=== PATIENT | female | born 1950 | race Caucasian/White ===

== ENCOUNTER 2022-01-23 09:15 | Outpatient (CLI) | payer MEDICARE, BC, SELFPAY | END 2022-01-23 09:16 | disposition home or self-care (01) | LOC: LAB 09:18 | PROVIDERS: Visit Provider Orthopaedic Surgery | DX: Z01.818 Encounter for other preprocedural examination (principal) | CPT/HCPCS: 36415; 86850; 86900; 86901 ==

== ENCOUNTER 2022-01-25 09:15 | Day surgery (SDC) | payer MEDICARE, BC, SELFPAY ==
[2022-01-25] VITALS (23 sets, daily range): BP systolic 93–155; BP diastolic 42–94; PULSE 56–79; RESP 12–20; TEMP 35.3–36.6; O2SAT 91–100; BMI 41.0
[2022-01-25] MEDS: ACETAMINOPHEN 500 MG TABLET 1000 MG PO ×3 (09:23→23:35)
[2022-01-25] MEDS: LACTATED RINGERS 1000 ML 1,000 ML 100 ML IV (09:30)
--- NOTE | 2022-01-25 10:15 | CRLHL7_ITS ---
For Patients: As a result of the Cures Act, medical imaging exams and procedure reports are released immediately into your electronic medical record. You may view this report before your referring provider. If you have questions, please contact your health care provider. Indication: Hip replacement surgery Technique: AP hip fluoroscopic images. Fluoroscopy time is 79.4 seconds. Findings/Impression: Hardware from a left total hip arthroplasty is in satisfactory position. Dictated by Cosmo Sargent MD @ 01/25/2022 2:15:34 PM (Electronically Signed)
[2022-01-25] MEDS: SODIUM CHLORIDE 0.9 % (FLUSH) 10 ML SYRINGE IVF (10:25)
--- NOTE | 2022-01-25 10:35 | SUR.PREOP ---
TIME?OUT:?1035, left hip PT/RN/MDA?VERIFICATION?OF?SURGICAL?SITE,?PROCEDURE,?AND?CONSENT OBTAINED?PRIOR?TO?INVASIVE?PROCEDURE.
[2022-01-25] MEDS: fentaNYL 100 MCG/2 ML inj IVP (10:40)
[2022-01-25] MEDS: MIDAZOLAM HCL 1 MG/ML inj IVP (10:40)
--- NOTE | 2022-01-25 10:45 | P.NB_ITS ---
Nerve Block Nerve Block Time Seen by Provider: 10:45 Date Seen: 01/25/22 Type of block requested by surgeon for post-operative analgesia: MICHAEL/LFCN Side: left Time out performed: Yes Verification of patient name: Yes Verification of date of : Yes Site marking: site marked Name of person performing procedure: Hemant Continuous monitoring Was continuous monitoring of O2 sat, B/P, strap folding machine operator, recorded every 15 minutes?: Yes Procedure Checklist: sterile prep, needles and gloves Ultrasound guided. Images saved: Yes Medications given in 5ml increments after negative aspiration: Ropivicaine %: 0.5 mL: 20 Needle gauge: 20 Decadron (mg): 10 Precedex (mcg): 25 Patient tolerated procedure well: Yes Additional comments: Needle noted adjacent to nerve Block Charges Block Charge (with Pro Fee): Other Periph Nerve Block Use of Ultrasound Machine for Block: Yes- US Guidance/pain block
[2022-01-25] MEDS: CEFAZOLIN 1 GM inj 3 GM IVP (11:25)
[2022-01-25] MEDS: TRANEXAMIC ACID 100 MG/ML INJ 1000 MG IV (11:30)
--- NOTE | 2022-01-25 13:13 | PM.ORPRC ---
Procedure Note Date of procedure: 01/25/22 Procedure: SURGEON: Dawood Perry MD FRANCHISE SPECIALIST: Susy Farley PA-C, SUHA Lincoln PREOPERATIVE DIAGNOSIS: Left hip osteoarthritis POSTOPERATIVE DIAGNOSIS: Left hip osteoarthritis NAME OF OPERATION: Left total hip arthroplasty IMPLANTS: 1. [employer] # 56 sector ingrowth cup 2. 36 x 56 +4 neutral polyethylene 3. Actis # 9 standard collared ingrowth stem 4. 36 + 1.5 ceramic femoral head ANESTHESIA: General ESTIMATED BLOOD LOSS: 300 cc COMPLICATIONS: None SPECIMENS: None DRAINS: None PREOPERATIVE ANTIBIOTICS: Ancef 3 grams INDICATIONS: The patient is a 71-year-old with a longstanding history of severe, unrelenting left hip pain secondary to end-stage left hip osteoarthritis. Despite appropriate nonoperative management, including activity modification, use of an assist device, anti-inflammatories, yxoq-nhb-vnytuel pain medication, physical therapy and injections, they continue to have pain and disability. Operative intervention was offered. The risks, benefits and expected outcomes were discussed in detail. These included but were not limited to: Infection, bleeding, injury to blood vessel or nerve, venous thromboembolism. All questions were answered to their satisfaction. Use of an contract administrative assistant was necessary throughout the case for patient positioning and safety, soft tissue retraction and closure. PROCEDURE: The patient was placed supine on the [place] table. General anesthesia was administered. The contract administrative assistant made sure the patient was properly positioned. The left hip was prepped and draped in the usual sterile fashion. The image intensifier was brought in for a perfect AP pelvis and a perfect double tear drop AP view of each hip which were used for intraoperative templating with our fluoroscopic guide. An oblique incision was made 3 cm distal and 3 cm lateral to the anterior superior iliac spine. The contract administrative assistant retracted the soft tissues to protect them. Subcutaneous dissection was taken with electrocautery to the superficial fascia. The fascia was divided in line with the incision. Blunt dissection was carried medially to the tensor fascia donte and sartorius interval. Deep dissection was carried with electrocautery. The circumflex vessels were cauterized and divided. The capsule was exposed and then divided in a T-fashion, tagged with #1 Ethibond sutures. Retractors were placed in the joint, held by the contract administrative assistant. The corkscrew was placed in the femoral head. The neck cut was made in the subcapital region. We made a second neck cut more distal. The napkin ring of bone was removed. The femoral head was removed intact. Acetabular retractors were placed, held by the contract administrative assistant. The labrum was sharply debrided. The capsule was released. The 43 mm reamer was used to the true medial wall. We then enlarged in 2 mm increments using the image intensifier for our reamer placement. We impacted the cup which had excellent purchase. We placed the hole eliminator and the polyethylene. Attention was then turned to the proximal femur. The limb was placed in 140 degrees of external rotation, maximum extension and adduction. A significant amount of time was spent releasing the capsule to allow us to deliver the femur into the wound and complete the femoral side safely. Retractors were held by the contract administrative assistant throughout the femoral preparation. The box press operator and canal finder were used. Broaches were used to a stable size. The calcar reamer was used. Trial components were placed. The hip was reduced and was found to be stable with appropriate soft tissue tension. Length and offset had been nicely restored using the image intensifier and our fluoroscopic guide. Trial components were removed. The stem was impacted. We placed the femoral head. Again, the hip was reduced and was found to be stable with appropriate soft tissue tension. Length and offset had been nicely restored. The contract administrative assistant did a three minute dilute Betadine solution soak. The contract administrative assistant irrigated the wound with 3 liters of normal saline via pulse lavage. The contract administrative assistant repaired the anterior capsule with a #1 Vicryl and our previously placed Ethibond sutures. The contract administrative assistant closed the fascia over the tensor fascia donte with a #1 PDO Stratafix, subcutaneous tissues with 2-0 Vicryl, skin with a running 3-0 Stratafix and glue. A dry dressing was applied by the contract administrative assistant. Sponge and needle counts were correct x 2. The patient tolerated the procedure well; there were no apparent complications. They were awakened and extubated in the operating room, sent to the Post-Anesthesia Care Unit in satisfactory condition. PLAN: 1. The patient will be mobilized with physical therapy, weight-bearing as tolerates 2. Xarelto x 5 days then aspirin x 30 days will be used for DVT prophylaxis 3. The patient will be discharged once medically appropriate
--- NOTE | 2022-01-25 13:42 | CRLHL7_ITS ---
For Patients: As a result of the Cures Act, medical imaging exams and procedure reports are released immediately into your electronic medical record. You may view this report before your referring provider. If you have questions, please contact your health care provider. Indication: POST OP LEFT CARMELO Technique: AP centered pelvic film and lateral view left hip Findings/Impression: Hardware from a left total hip arthroplasty is in satisfactory position. Bone alignment is normal. No sign of acute fracture. Postop changes are within normal limits. Dictated by Cosmo Sargent MD @ 01/25/2022 2:16:23 PM (Electronically Signed)
--- NOTE | 2022-01-25 13:47 | W.ANESCHARGE ---
Anesthesia Charges Start Date/Time Anesthesia Start Date: 01/25/22 Anesthesia Start Time: 11:15 Stop Date/Time Anesthesia Stop Date: 01/25/22 Anesthesia Stop Time: 13:47 Summary Emergency: No Extremes of Age: Over 70-CPT 48872
--- NOTE | 2022-01-25 13:50 | W.ANESCHARGE ---
Anesthesia Charges Start Date/Time Anesthesia Start Date: 01/25/22 Anesthesia Start Time: 11:15 Stop Date/Time Anesthesia Stop Date: 01/25/22 Anesthesia Stop Time: 13:47 Summary Emergency: No Extremes of Age: Over 70-CPT 49770
--- NOTE | 2022-01-25 14:22 | SUR.PHASEI ---
PT. VITAL SIGNS STABLE. TRANSFER PT TO M/S VIA BED.
[2022-01-25] MEDS: LACTATED RINGERS 1000 ML 1,000 ML 75 ML IV (14:39)
--- NOTE | 2022-01-25 15:02 | P.IMCN_ITS ---
Date of Consult Consult date: 01/25/22 Primary Care Provider: An Prado CNP at [facility] in [place], [place] Consult Narrative Reason for consult: Medical management of comorbidities Narrative: Rut Medina is a 71 year old female who presented to the hospital today for elective left CARMELO with Dr. Perry of Orthopedic surgery. There were no operative or anesthetic complications. Patient is feeling well postoperatively and denies concerns for the hospitalist team. Historically, patient has had bilateral TKAs without complication. She also had a gastric bypass remotely. Comorbidities include anxiety, claustrophobia, Raynaud's phenomenon, essential HTN, mild persistent asthma (never requiring intubation, does not require regular pulmonology follow-up), and allergic rhinitis. No history of blood clots. Preoperative H&P reviewed. She was found to have a mild arrhythmia on preoperative EKG, echocardiogram performed and exhibited no LVH, EF of 63%, and grade 1 diastolic dysfunction. She has had no concerns of chest pain, dyspnea, orthopnea, or PND. No family history of anesthetic complications. 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), retired teacher. Never smoker, rare alcohol use. Review of Systems Status of ROS: Reports: 10 or more systems reviewed and unremarkable except as noted in History and below [facility] Medical History (Updated 01/25/22 @ 15:09 by Jana Huntley MD) Anxiety Asthma Hypertension Pernicious anemia Raynauds syndrome Surgical History (Updated 01/25/22 @ 15:04 by Susy Stevenson PA-C) H/O gastric bypass History of appendectomy History of bunionectomy History of carpal tunnel release of both wrists History of cholecystectomy History of total left knee replacement (08/30/13) History of total right knee replacement (01/17/14) S/P panniculectomy Family History (Updated 01/18/22 @ 09:32 by Josette King RN) Brother Diabetes Atrial fibrillation High blood pressure Myocardial infarction Mother Atrial fibrillation High blood pressure Stroke Father Myocardial infarction Social History Smoking Status: Never smoker How often do you have a drink containing alcohol: never AUDIT-C Alcohol total score: 0 Non-prescribed substance use: denies use and over the counter (eg: immodium) Non-prescribed substance use details: OTC: tumeric, fish oil, calcium with D3, methyl B12, vitamin, CQ10, Zyrtec, Flonase Caffeine: Yes (coffee, 2 cups/day) Meds Home Medications and Allergies Home Medications Medication Instructions Recorded Confirmed Type albuterol sulfate 2.5 mg/3 mL 2.5 mg inhalation Q4H PRN 01/21/22 01/25/22 History (0.083 %) solution for nebulization albuterol sulfate 90 mcg/actuation 2 puff inhalation Q4H PRN 01/21/22 01/21/22 History aerosol inhaler amlodipine 5 mg tablet 5 mg PO DAILY 01/21/22 01/25/22 History amoxicillin 500 mg capsule 2,000 mg PO ONCE PRN 01/21/22 01/21/22 History buspirone 7.5 mg tablet 7.5 mg PO DAILY 01/21/22 01/25/22 History calcium carbonate 600 mg-vitamin 2 cap PO DAILY 01/21/22 01/25/22 History D3 12.5 mcg (500 unit) capsule (Calcium 600 with Vitamin D3) cetirizine 10 mg tablet (24Hour 10 mg PO DAILY 01/21/22 01/25/22 History Allergy) coenzyme Q10 100 mg capsule (Co 100 mg PO DAILY 01/21/22 01/25/22 History Q-10) cyanocobalamin-methylcobalamin 600 1 tab sublingual DAILY 01/21/22 01/21/22 History mcg-600 mcg sublingual tablet fluticasone furoate 200 1 inh inhalation DAILY 01/21/22 01/25/22 History mcg/actuation blister powder for inhalation (Arnuity Ellipta) fluticasone propionate 50 2 spray intranasal DAILY 01/21/22 01/25/22 History mcg/actuation nasal spray,suspension (Allergy Relief (fluticasone)) lorazepam 0.5 mg tablet 0.5 mg PO DAILY PRN 01/21/22 01/25/22 History multivitamin 1 tab PO DAILY 01/21/22 01/25/22 History nitroglycerin 2 % transdermal 0.5 inch topical PRN PRN 01/21/22 01/25/22 History ointment omega 2-xse-evq-fish oil 1,000 mg 1 cap PO DAILY 01/21/22 01/25/22 History (120 mg-180 mg) capsule (Fish Oil) turmeric root extract 500 mg 1,000 mg PO DAILY 01/21/22 01/25/22 History capsule Allergies Allergy/AdvReac Type Severity Reaction Status Date / Time NSAIDS (Non-Steroidal Allergy Intermediate gastric Verified 01/25/22 09:34 Anti-Inflamma bypass tramadol Allergy Unknown Verified 01/25/22 09:34 oxycodone AdvReac Mild Verified 01/25/22 09:34 Exam Narrative: Exam Narrative: GEN: Alert and oriented, laying comfortably in bed answering questions appropriately HEENT: Normal external ears, EOMIs bilaterally, no scleral icterus CV: RRR, No concerning murmurs, rubs, or gallops R: LCTA bilaterally without concerning wheezing, rales, or rhonchi Ext: wwp, no concerning edema Skin: No concerning skin lesions or rashes on exposed skin Neuro: Nonfocal Psych: Appropriate Const: Vital Signs, click to edit/add: Vital Signs - 24 hr 01/25/22 10:11 01/25/22 10:35 01/25/22 10:45 Temperature 97.8 F Pulse Rate 70 79 64 Respiratory Rate 18 18 18 Blood Pressure 135/64 155/94 H 150/89 H Pulse Oximetry 99 100 98 Oxygen Delivery Me thod Room Air Nasal Cannula Nasal Cannula Oxygen Flow Rate 3 3 01/25/22 13:44 01/25/22 13:50 01/25/22 13:55 Temperature 97.7 F Pulse Rate 70 60 56 L Respiratory Rate 14 12 14 Blood Pressure 96/52 L 96/43 L 93/42 L Pulse Oximetry 94 99 100 Oxygen Delivery Me thod Room Air OxyMask OxyMask Oxygen Flow Rate 10 10 01/25/22 14:00 01/25/22 14:05 01/25/22 14:10 Temperature 97.5 F L Pulse Rate 61 61 61 Respiratory Rate 14 16 16 Blood Pressure 118/67 116/81 126/68 Pulse Oximetry 100 97 98 Oxygen Delivery Me thod OxyMask OxyMask Room Air Oxygen Flow Rate 10 6 01/25/22 14:15 01/25/22 14:20 01/25/22 14:24 Temperature 97.6 F 97.6 F Pulse Rate 69 70 66 Respiratory Rate 16 16 14 Blood Pressure 135/67 129/65 143/86 H Pulse Oximetry 95 94 95 Oxygen Delivery Me thod Room Air Room Air Room Air Oxygen Flow Rate Assessment and Plan Assessment and plan (1) Status post left hip replacement: Status: Acute (2) Asthma: Problem comment: mild Status: Acute (3) Anxiety: Status: Acute (4) Hypertension: Status: Acute Plan 71-year-old female, status post left CARMELO. Pain management per orthopedic surgery team. Recommend postoperative DVT prophylaxis with Xarelto, not ASA, given patient's history of gastric bypass. Continue home medications for above-mentioned comorbidities. Anticipate routine postoperative cares and discharge home tomorrow.
--- NOTE | 2022-01-25 15:40 | PC.NURSE ---
PATIENT ARRIVED TO FLOOR AROUND 1435, FAMILY PRESENT AT BEDSIDE, PATIENT ALERT AND ORIENTED BUT VERY SLEEPY, RESPONDS TO VOICE, DRESSING TO LEFT HIP CDI, ACTIVE ICE TO SITE, DECLINING PAIN, ABLE TO MOVE FEET, DECLINING NAUSEA, DECLINING SOB/CP, TOLERATING ICE CHIPS.
[2022-01-25] MEDS: CEFAZOLIN 3 GM in 0.9 % SODIUM CHLORIDE 100 ml 100 ML IVPB (17:26)
--- NOTE | 2022-01-25 19:04 | PC.NURSE ---
[id number]- Patient is sleepy this afternoon. Daughter at bedside and supportive. Jarek rm removed due to patient feeling hot. She tolerates regular diet without issue. She states she is having a little hip pain starting, but headache is more bothersome. Scheduled tylenol given and understands she can get other pain medications if needed, which she is agreeable to. She does not yet feel need to void.
[2022-01-25] MEDS: SENNOSIDES 1 TAB TABLET 2 TAB PO (20:08)
[2022-01-25] MEDS: LORazepam 0.5 MG TABLET PO (20:27)
[2022-01-25] MEDS: HYDROCODONE-ACETAMIN 5-325 MG 1 TAB PO (21:21)
[2022-01-26] MEDS: CEFAZOLIN 3 GM in 0.9 % SODIUM CHLORIDE 100 ml 100 ML IVPB ×2 (01:30→09:18)
[2022-01-26 02:21] VITALS: BP 124/62; PULSE 73; RESP 20; TEMP 36.2; O2SAT 96
--- NOTE | 2022-01-26 02:35 | PC.NURSE ---
Addendum entered by Lili Sheriff RN 01/26/22 05:29: Pt. rated pain 5/10 at 0400, PRN administered and tolerated well. Ice pack to Left hip every few hours. Dressing is clean dry and intact. Pt. sleeping comfortably in recliner and denies any N/V. Original Note: Pt. alert and oriented x3. Very pleasant and cooperative. Pt. tolerating regular diet w/out issue.?Pt. denies pain, scheduled Tylenol given and understands she can get other pain medications if needed, which she is agreeable to but has not requested any.? Pt. up to bathroom and voided. Pt. up to chair and ambulated in hallway w/RN, tolerated activity well. IV in left arm is patent, intact and saline locked.
[2022-01-26] MEDS: HYDROCODONE-ACETAMIN 5-325 MG 1 TAB PO ×2 (03:56→08:33)
[2022-01-26 07:00] VITALS: BP 127/69; PULSE 83; RESP 18; RESP 20; TEMP 36.1; O2SAT 99
[2022-01-26 07:13] LABS: Potassium* 4.9 mmol/L (3.6-5.1); Sodium* 135 mmol/L (135-149)
[2022-01-26 07:14] LABS: Basophils Absolute Auto 0.02 K/uL (0.00-0.30); Basophils Percent Auto 0.2 % (0.0-3.0); Eosinophils Absolute Auto 0.01 K/uL (0.00-0.50); Eosinophils Percent Auto 0.1 % (0.0-7.0); Hematocrit 36.7 % (33.0-51.0); Hemoglobin* 11.7 gm/dL (12.0-16.0); Immature Granulocytes Abs Auto 0.01 K/uL (0.00-0.30); Lymphocytes Percent Auto 12.9 % (20-44); Mean Corpuscular HGB Conc 32 gm/dL (32-36); Mean Corpuscular Hemoglobin 29 pg (26-34); Mean Corpuscular Volume 91 fL (80-100); Monocytes Percent Auto 8.2 % (0.0-11.0); Neutrophils Percent Auto 78.5 % (42.0-72.0); Platelet Count* 156 K/uL (140-440); RDW Coefficient of Variation % 13.8 % (11.5-15.5); Red Blood Count 4.03 m/uL (4.00-5.20); White Blood Count* 10.79 K/uL (4.50-11.00)
[2022-01-26 07:16] LABS: Creatinine* 0.7 mg/dL (0.5-1.5); Est. Creatinine Clearance* 48.72; Estimated Glomerular Filt Rate 91 ml/min
[2022-01-26 07:17] LABS: Blood Urea Nitrogen* 26 mg/dL (7-30)
[2022-01-26 07:19] LABS: Slide Review Reflex No
--- NOTE | 2022-01-26 08:30 | PM.ORPN ---
Subjective Subjective Time Seen by Provider: 07:30 Date Seen: 01/26/22 Principal diagnosis: Status post left hip replacement Interval history: Rut is comfortable this morning. She plans to discharge today. Ortho Exam Narrative Exam Narrative: Alert and oriented x3. Patient is in no acute distress. Converses without labored breathing. Hearing is grossly intact. Ambulates with a walker. Examination of the left hip shows the dressing is intact. There is very mild soft tissue edema about the left hip and thigh. CMS is intact left lower extremity. Bilateral calves are soft and nontender. She is able to get out of her recliner and walk to the bathroom this morning with no assistance and a nurse at her side. Const Vital Signs, click to edit/add: Vital Signs - 24 hr 01/25/22 10:11 01/25/22 10:35 01/25/22 10:45 Temperature 97.8 F Pulse Rate 70 79 64 Pulse Rate [Left Pulse Oximeter] Respiratory Rate 18 18 18 Blood Pressure 135/64 155/94 H 150/89 H Blood Pressure [Right Arm] Pulse Oximetry 99 100 98 Oxygen Delivery Method Room Air Nasal Cannula Nasal Cannula Oxygen Flow Rate 3 3 01/25/22 13:44 01/25/22 13:50 01/25/22 13:55 Temperature 97.7 F Pulse Rate 70 60 56 L Pulse Rate [Left Pulse Oximeter] Respiratory Rate 14 12 14 Blood Pressure 96/52 L 96/43 L 93/42 L Blood Pressure [Right Arm] Pulse Oximetry 94 99 100 Oxygen Delivery Method Room Air OxyMask OxyMask Oxygen Flow Rate 10 10 01/25/22 14:00 01/25/22 14:05 01/25/22 14:10 Temperature 97.5 F L Pulse Rate 61 61 61 Pulse Rate [Left Pulse Oximeter] Respiratory Rate 14 16 16 Blood Pressure 118/67 116/81 126/68 Blood Pressure [Right Arm] Pulse Oximetry 100 97 98 Oxygen Delivery Method OxyMask OxyMask Room Air Oxygen Flow Rate 10 6 01/25/22 14:15 01/25/22 14:20 01/25/22 14:24 Temperature 97.6 F 97.6 F Pulse Rate 69 70 66 Pulse Rate [Left Pulse Oximeter] Respiratory Rate 16 16 14 Blood Pressure 135/67 129/65 143/86 H Blood Pressure [Right Arm] Pulse Oximetry 95 94 95 Oxygen Delivery Method Room Air Room Air Room Air Oxygen Flow Rate 01/25/22 14:35 01/25/22 14:45 01/25/22 15:00 Temperature 95.5 F L 95.5 F L Pulse Rate 71 Pulse Rate [Left Pulse Oximeter] 65 Respiratory Rate 16 16 16 Blood Pressure Blood Pressure [Right Arm] 145/69 H 138/68 137/72 Pulse Oximetry 91 94 Oxygen Delivery Method Room Air Room Air Room Air Oxygen Flow Rate 01/25/22 15:15 01/25/22 15:30 01/25/22 16:00 Temperature 95.5 F L Pulse Rate Pulse Rate [Left Pulse Oximeter] 76 70 68 Respiratory Rate 16 16 16 Blood Pressure Blood Pressure [Right Arm] 133/72 124/74 126/69 Pulse Oximetry 100 95 95 Oxygen Delivery Method Room Air Room Air Room Air Oxygen Flow Rate 01/25/22 16:17 01/25/22 16:30 01/25/22 18:00 Temperature 96.5 F L Pulse Rate Pulse Rate [Left Pulse Oximeter] 74 69 Respiratory Rate 16 16 Blood Pressure Blood Pressure [Right Arm] 131/68 124/70 Pulse Oximetry 99 91 Oxygen Delivery Method Nasal Cannula Room Air Oxygen Flow Rate 2 01/25/22 17:00 01/25/22 23:00 01/25/22 23:00 Temperature 96.8 F L Pulse Rate Pulse Rate [Left Pulse Oximeter] 76 77 77 Respiratory Rate 16 20 20 Blood Pressure Blood Pressure [Right Arm] 127/71 122/64 Pulse Oximetry 91 97 Oxygen Delivery Method Room Air Room Air Oxygen Flow Rate 01/26/22 02:21 Temperature 97.1 F L Pulse Rate Pulse Rate [Left Pulse Oximeter] 73 Respiratory Rate 20 Blood Pressure Blood Pressure [Right Arm] 124/62 Pulse Oximetry 96 Oxygen Delivery Method Room Air Oxygen Flow Rate Assessment and Plan Assessment and plan (1) Status post left hip replacement: Problem details: Date of surgery 01/25/2022 Plan for discharge is today to home. DVT prophylaxis includes Xarelto 10 mg daily for total of 30 days, Tre stockings x1 month may remove for 1 hr per day, frequent ambulation Remove dressing 2 weeks. Observe wound and phone Orthopedics with any questions or concerns Use Ice on operative hip unrestricted. Return to clinic in 1 week with PA for a wound check Return to clinic in [address] Perry Minimize narcotic use. Wean off and discontinue soon as possible. Activities as tolerated. No strenuous activity. Attend outpt PT Status: Acute (2) Asthma: Problem details: mild Status: Acute (3) Anxiety: Status: Acute (4) Hypertension: Status: Acute
[2022-01-26] MEDS: SENNOSIDES 1 TAB TABLET 2 TAB PO (08:33)
[2022-01-26] MEDS: BUSPIRONE 10 MG TABLET 7.5 MG PO (08:33)
[2022-01-26] MEDS: RIVAROXABAN 10 MG TABLET PO (08:33)
[2022-01-26] MEDS: CETIRIZINE HCL 10 MG TABLET PO (08:33)
[2022-01-26] MEDS: FLUTICASONE PROPIONATE NASAL 2 SPRAY NOSTRIL-B (08:34)
--- NOTE | 2022-01-26 10:20 | P.DS_ITS ---
DS: Providers Provider Time Seen by Provider: 09:00 Date Seen: 01/26/22 Primary care physician: Not a Local Provider Admitting Clinician: Dawood Perry MD Consults: 01/25/22 14:24 Consult to Occupational Therapy [CONS] Routine Comment: Reason(s) for OT Consult:: ADLs Prior to Discharge Any Restrictions?:: No Restrictions Comment: Consult to Occupational Therapy [CONS] Routine Comment: Reason(s) for OT Consult:: Evaluate and Treat Any Restrictions?:: No Restrictions Consult to Physical Therapy [CONS] Routine Comment: Ambulate in the [place] today Reason(s) for PT Consult:: Evaluate and Treat Any Restrictions?:: No Restrictions Comment: Nursing Activity Consult to Physical Therapy [CONS] Routine Comment: Ambulate in the [place] today Reason(s) for PT Consult:: THR TX Protocol POD#0 Any Restrictions?:: No Restrictions Comment: Nursing Activity: See nursing activity order Consult to Physician [CONS] Routine Comment: Consulting Provider: Hospitalists Has provider been notified: No Consult to Stemming Machine Operator [CONS] Routine Comment: Reason for Consult:: Discharge Planning Needs Consult to Stemming Machine Operator [CONS] Routine Comment: Reason for Consult:: Discharge Planning Needs Attending Physician on discharge: Dawood Perry MD Date of Discharge: 01/26/22 DS: Diagnosis Discharge Diagnosis (1) Status post left hip replacement: Status: Acute Problem details: Date of surgery 01/25/2022 Plan for discharge is today to home. DVT prophylaxis includes Xarelto 10 mg daily for total of 30 days, Tre stockings x1 month may remove for 1 hr per day, frequent ambulation Remove dressing 2 weeks. Observe wound and phone Orthopedics with any questions or concerns Use Ice on operative hip unrestricted. Return to clinic in 1 week with PA for a wound check Return to clinic in [address] Perry Minimize narcotic use. Wean off and discontinue soon as possible. Activities as tolerated. No strenuous activity. Attend outpt PT (2) Hypertension: Status: Acute (3) Asthma: Status: Acute Problem details: mild (4) Anxiety: Status: Acute (5) Calculus of kidney: Status: Acute DS: Summary Hospital Course Hospital Course: Rut Medina is a 71 year old female who presented to the hospital today for elective left CARMELO with Dr. Perry of Orthopedic surgery. There were no operative or anesthetic complications.? Patient is feeling well postoperatively and denies concerns for the hospitalist team. 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 She also had a gastric bypass remotely. Comorbidities include anxiety, claustrophobia, Raynaud's phenomenon, essential HTN, mild persistent asthma (never requiring intubation, does not require regular pulmonology follow-up), and allergic rhinitis.? No history of blood clots. Preoperative H&P reviewed.? She was found to have a mild arrhythmia on preoperative EKG, echocardiogram performed and exhibited no LVH, EF of 63%, and grade 1 diastolic dysfunction.? She has had no concerns of chest pain, dyspnea, orthopnea, or PND. Did well while in hospital. Tolerated increased activities. Pain adequately managed. Has baseline sense of lightheadedness. Blood pressure is very well controlled with her antihypertensive medications on hold. We did not restart that in the hospital. Recommend that this be followed up in the outpatient setting. Eating and drinking without difficulties. Denies nausea or vomiting. She indicates she is ready to be discharged from the hospital once she is told that she may do so. Status at Discharge Functional status at discharge: uses cane/walker Overall status at discharge: patient is progressing back to baseline Time Spent with Patient Time attestation: Total time spent providing and/or coordinating discharge services: Time spent: Less than 30 minutes Exam Narrative: Exam Narrative: Exam Narrative: GEN: Alert and oriented, laying comfortably in bed answering questions appropriately HEENT: Normal external ears, EOMIs bilaterally, no scleral icterus CV: RRR, No concerning murmurs, rubs, or gallops R: LCTA bilaterally without concerning wheezing, rales, or rhonchi Ext: wwp, no concerning edema Skin: No concerning skin lesions or rashes on exposed skin Neuro: Nonfocal Psych: Appropriate Musculoskeletal: Ambulating in her hospital room with standby assist and use of walker. Const: Vital Signs, click to edit/add: Vital Signs - 24 hr 01/25/22 10:35 01/25/22 10:45 01/25/22 13:44 Temperature 97.7 F Pulse Rate 79 64 70 Pulse Rate [Left P ulse Oximeter] Respiratory Rate 18 18 14 Blood Pressure 155/94 H 150/89 H 96/52 L Blood Pressure [Ri ght Arm] Pulse Oximetry 100 98 94 Oxygen Delivery Me thod Nasal Cannula Nasal Cannula Room Air Oxygen Flow Rate 3 3 01/25/22 13:50 01/25/22 13:55 01/25/22 14:00 Temperature 97.5 F L Pulse Rate 60 56 L 61 Pulse Rate [Left P ulse Oximeter] Respiratory Rate 12 14 14 Blood Pressure 96/43 L 93/42 L 118/67 Blood Pressure [Ri ght Arm] Pulse Oximetry 99 100 100 Oxygen Delivery Me thod OxyMask OxyMask OxyMask Oxygen Flow Rate 10 10 10 01/25/22 14:05 01/25/22 14:10 01/25/22 14:15 Temperature Pulse Rate 61 61 69 Pulse Rate [Left P ulse Oximeter] Respiratory Rate 16 16 16 Blood Pressure 116/81 126/68 135/67 Blood Pressure [Ri ght Arm] Pulse Oximetry 97 98 95 Oxygen Delivery Me thod OxyMask Room Air Room Air Oxygen Flow Rate 6 01/25/22 14:20 01/25/22 14:24 01/25/22 14:35 Temperature 97.6 F 97.6 F 95.5 F L Pulse Rate 70 66 71 Pulse Rate [Left P ulse Oximeter] Respiratory Rate 16 14 16 Blood Pressure 129/65 143/86 H Blood Pressure [Ri ght Arm] 145/69 H Pulse Oximetry 94 95 Oxygen Delivery Me thod Room Air Room Air Room Air Oxygen Flow Rate 01/25/22 14:45 01/25/22 15:00 01/25/22 15:15 Temperature 95.5 F L Pulse Rate Pulse Rate [Left P ulse Oximeter] 65 76 Respiratory Rate 16 16 16 Blood Pressure Blood Pressure [Ri ght Arm] 138/68 137/72 133/72 Pulse Oximetry 91 94 100 Oxygen Delivery Me thod Room Air Room Air Room Air Oxygen Flow Rate 01/25/22 15:30 01/25/22 16:00 01/25/22 16:17 Temperature 95.5 F L 96.5 F L Pulse Rate Pulse Rate [Left P ulse Oximeter] 70 68 Respiratory Rate 16 16 Blood Pressure Blood Pressure [Ri ght Arm] 124/74 126/69 Pulse Oximetry 95 95 Oxygen Delivery Me thod Room Air Room Air Oxygen Flow Rate 01/25/22 16:30 01/25/22 18:00 01/25/22 17:00 Temperature Pulse Rate Pulse Rate [Left P ulse Oximeter] 74 69 76 Respiratory Rate 16 16 16 Blood Pressure Blood Pressure [Ri ght Arm] 131/68 124/70 127/71 Pulse Oximetry 99 91 91 Oxygen Delivery Me thod Nasal Cannula Room Air Room Air Oxygen Flow Rate 2 01/25/22 23:00 01/25/22 23:00 01/26/22 02:21 Temperature 96.8 F L 97.1 F L Pulse Rate Pulse Rate [Left P ulse Oximeter] 77 77 73 Respiratory Rate 20 20 20 Blood Pressure Blood Pressure [Ri ght Arm] 122/64 124/62 Pulse Oximetry 97 96 Oxygen Delivery Me thod Room Air Room Air Oxygen Flow Rate 01/26/22 07:00 01/26/22 07:00 Temperature 96.9 F L Pulse Rate Pulse Rate [Left P ulse Oximeter] 83 83 Respiratory Rate 20 18 Blood Pressure Blood Pressure [Pr ght Arm] 127/69 Pulse Oximetry 99 Oxygen Delivery Me thod Room Air Oxygen Flow Rate 0 Documenting provider has reviewed patient's vital signs: yes DS: Data Data Completed and Pending Labs on day of discharge: Labs from last 24 hours 01/26/22 01/26/22 06:40 06:40 WBC 10.79 RBC 4.03 Hgb 11.7 L Hct 36.7 MCV 91 MCH 29 MCHC 32 RDW Coeff of Chuck 13.8 Plt Count 156 Neut % (Auto) 78.5 H Lymph % (Auto) 12.9 L Pierce % (Auto) 8.2 Eos % (Auto) 0.1 Baso % (Auto) 0.2 Neut # (Auto) 8.50 H Lymph # (Auto) 1.40 Pierce # (Auto) 0.90 Eos # (Auto) 0.01 Baso # (Auto) 0.02 Abs Immat Gran (auto) 0.01 Sodium 135 Potassium 4.9 BUN 26 Creatinine 0.7 Estimated Creat Clear 48.72 Estimated GFR 91 Discharge Plan Discharge Disposition: Home, Self-Care Discharging Surgeon: Dawood Perry Follow-Up Appointment: 1 week Prescriptions: New hydrocodone-acetaminophen 5-325 mg Tablet 1 - 2 tab PO Q4-6H MDD 6 tabs per day PRN (Reason: Pain) Qty: 42 0RF Rx Instructions: Minimize. Discontinue as soon as possible sennosides [Senna Lax] 8.6 mg Tablet 17.2 mg PO BID PRN (Reason: constipation) Qty: 100 0RF Xarelto 10 mg tablet 10 mg PO DAILY Qty: 30 0RF Rx Instructions: for 30 days postoperatively. Please d/c previous RX Continued albuterol sulfate 90 mcg/actuation HFA aerosol inhaler 2 puff INHALATION Q4H PRN amoxicillin 500 mg capsule 2,000 mg PO ONCE PRN Rx Instructions: 1 HR PRIOR TO DENTAL APPT buspirone 7.5 mg tablet 7.5 mg PO DAILY lorazepam 0.5 mg tablet 0.5 mg PO DAILY PRN multivitamin Tablet 1 tab PO DAILY nitroglycerin 2 % ointment 0.5 inch topical PRN PRN Rx Instructions: PRN RAYNAUD'S SYMPTOMS turmeric root extract 500 mg capsule 1,000 mg PO DAILY Arnuity Ellipta 200 mcg/actuation blister with device 1 inh inhalation DAILY cetirizine [24Hour Allergy] 10 mg tablet 10 mg PO DAILY omega 6-[id number]-[id number]-fish oil [Fish Oil] 1,000 mg (120 mg-180 mg) capsule 1 cap PO DAILY cyanocobalamin-methylcobalamin 600-600 mcg tablet, sublingual 1 tab sublingual DAILY albuterol sulfate 2.5 mg /3 mL (0.083 %) solution for nebulization 2.5 mg inhalation Q4H PRN calcium carbonate-vitamin D3 [Calcium 600 with Vitamin D3] 600 mg-12.5 mcg (500 unit) capsule 2 cap PO DAILY fluticasone propionate [Allergy Relief (fluticasone)] 50 mcg/actuation spray,suspension 2 spray intranasal DAILY Rx Instructions: administer into each nostril coenzyme Q10 [Co Q-10] 100 mg capsule 100 mg PO DAILY Held amlodipine 5 mg tablet 5 mg PO DAILY Hold Instructions: Resume on 01/29/22. Hold for next 2-3 days, and consider resuming at 2.5 mg daily thereafter. Activity Level: Activity as Tolerated and No strenuous activity Activity Detail: Keep dressing on for 2 weeks. Change if soiled. Dressing is waterproof. May shower. Surgical glue covers the wound. Attend outpatient physical therapy if scheduled. Ice operative extremity without restriction. Wear compression stockings for 1 month post surgery. May remove for 1 hour per day[address] Do not drive while taking narcotic pain medication. Do not drink alcohol while taking narcotic pain medication. May drive when safe to do so and have full function of the extremities, this may take 6 weeks or more. Notify Orthopedics with any questions or concerns. ([phone]) Discharge Diet: 2 gm Sodium Diet Detail: Do not sprinkle any salt to your food after it is on your plate. Patient Instructions: Hydrocodone/Acetaminophen (By mouth), Laxative, Stimulant (By mouth), Rivaroxaban (By mouth) (Xarelto, Xarelto Starter Pack), Surgical Site Infections (DC), Anterior Hip Replacement (DC) Forms: Work/Release Restrictions Follow-up: [facility] [Other] - 02/01/22 11:00 am Elsi Oakley PA-C [Physician Patent Prosecution Paralegal] - 02/02/22 11:00 am Provider,Not a Local [Primary Care Provider] - Discharge Orders: Discharge Order (Routine); Ordered 01/26/22 Ordered By: Diogo Harrington
[2022-01-26 11:00] VITALS: BP 110/92; PULSE 71; RESP 18; TEMP 36.9; O2SAT 96
--- NOTE | 2022-01-26 13:58 | PC.NURSE ---
Addendum entered by Katerine Morales RN 01/26/22 14:34: PATIENT DISCHARGED TO HOME WITH DAUGHTER, LEFT VIA WHEELCHAIR AT 1430, PATIENT VERBALIZED UNDERSTANDING OF DISCHARGE INFORMATION AND HAD NO FURTHER QUESTIONS AT THIS TIME, IV REMOVED AND CATHETER INTACT, ALL BELONGINGS SENT WITH PATINT. Original Note: PATIENT PLEASANT AND COOPERATIVE, UP SBA WITH WALKER AND BELT TOLERATING FAIRLY, PATIENT THIS MORNING GOT DIZZY WITH AMBULATION, THIS AFTERNOON WAS ABLE TO FINISH PHYSICAL THERAPY WITH SUCCESS, DECLINING NAUSEA, TOLERATING REGULAR DIET, RATING PAIN IN LEFT HIP 5/10 BIENG MANAGED WITH PRN NORCO, PATIENT STATES THAT MEDICATION MAKES ME VERY SLEEPY, ACTIVE ICE TO SITE, DRESSING TO LEFT HIP CDI.
== END 2022-01-26 14:30 | disposition home or self-care (01) ==
LOC: OR 09:15 → MEDSURG 13:59
PROVIDERS: Visit Provider Orthopaedic Surgery
PROC: (CPT 27130; principal; 2022-01-25 11:30)
DX: M16.12 Unilateral primary osteoarthritis, left hip (principal); Z98.84 Bariatric surgery status; I10 Essential (primary) hypertension; F41.9 Anxiety disorder, unspecified; F40.240 Claustrophobia; I73.00 Raynaud's syndrome without gangrene; J45.30 Mild persistent asthma, uncomplicated; N20.0 Calculus of kidney
CPT/HCPCS: 27130; 01214; 36415; 64450; 73501; 76942; 82565; 84132; 84295; 84520; 85025; 97110; 97116; 97161; 97166; 97530; 97535; 99100; A9270; C1776; J0690; J1100; J2250; J2795; J3010; J7120

== ENCOUNTER 2022-03-04 10:45 | Outpatient (RCR) | payer MEDICARE, BC, SELFPAY ==
--- NOTE | 2022-01-24 11:42 | PT.OPEX ---
PT [place] [facility] Start: 01/24/22 07:58 Freq: Status: Active Protocol: Document 01/24/22 11:26 YORDANDeysi (Rec: 01/24/22 11:35 KL [id number]) E-signed By Vero Hart, PT Physical Therapy Outpatient Evaluation Insurance Information Recert Due Date 04/18/22 Insurance Name Medicare B,Other; See Comments Insurance Information/Comments [employer] [place] Medical Diagnosis Left hip pain (Pre and post operative L CARMELO) Treating Diagnosis Left hip pain, limited hip ROM , impaired gait, impaired balance, gross LE weakness Referring MD Perry Subjective Subjective Patient reports to PT prior to L CARMELO DOS anticipated for 01/[address] Perry. Daughter present today. 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 Lives with daughter in split-level home (basement). Daughter and [id number] will be present following surgery to assist. She has B handrails in stairway in home, raised toilet seat, grab bars. She will need to be issued FWW prior to d/c from hospital. She may get leg naval engineer, sock aid and shower chair at home prior to surgery. No further questions or concerns prior to surgery. PMH: B TKA, hypertension, mild asthma, arthritis, osteopenia , raynauds, obesity Pain Comments 10/10 worst with activity 5/10 rest Date of Surgery (If applicable) 01/25/22 Current Work Status Retired Objective Other/Pertinent Objective Gait: L LE abducted during stance, limited stance time L LE, mid foot strike L LE, step to pattern with SEC Stairs: step to pattern on stairs Denies radicular symptoms UE strength and ROM: WNL and strong LE ROM: significantly limited L hip all motions, particularly IR, abd and extension LE strength: -L 3+/5 hip flexion and abd with pain, 4/5 all other motions -R at least 4+/5 all motions and pain free Assessment Assessment/Impression Pt presents with signs and symptoms consistent with severe R hip OA. DOS: anticipated for 01/25/22. Expected deficits/impairments in pain, ROM, and strength. Pt would benefit from skilled PT interventions to facilitate safety post-operatively and optimize function post operatively. Today's session focused on education of HEP and safety precautions with home set-up, stair negotiation , total hip precautions and ADLs to follow post- operatively and how to obtain other medical equipment prior to surgery (leg naval engineer, shower chair, sock aide). Patient able to verbalize and demonstrate understanding of precautions and HEP today. Plan of Care Rehabilitation Potential Good Physical Therapy Goals By end of session today, patient will... Demonstrate appropriate gait pattern with FWW to utilize post surgery for optimal safety when ambulating Demonstrate ability to negotiate stairs using appropriate stair pattern post surgery for optimal safety when at home and in community Verbalize understanding of most appropriate home set up including needed equipment for optimal safety and recovery post surgery Be independent in HEP program to show ability to perform appropriate exercises post surgery Treatment Plan/Direct Interventions Gait Training,Joint Mobilization,Manual Therapy, Neuromuscular Re-ed,Self-Care/ Home Management,Therapeutic Activities,Therapeutic Exercises Frequency/Duration 1 session prior to CARMELO, then will re-evaluate following surgery Patient Will Be Discharged From Therapy Completion of LTG(s), Independent w/HEP, Independently Progressing Evaluation Billing Untimed Code Treatment Minutes 12 Complexity Low Certification Information Initial Certification Date 01/24/22 Ending Certification Date 04/18/22
--- NOTE | 2022-02-01 13:42 | PT.OPDNX ---
PT [place] [facility] Daily Note PT [facility] Daily Note Start: 01/24/22 07:58 Freq: Status: Active Protocol: Document 02/01/22 11:07 EMIL (Rec: 02/01/22 12:11 EMIL [email or web address]) E-signed By [facility] Helton, PT PT OP Daily Progress Note Visit Information Note Type Daily Note,Recert/Progress Note Visit Number 2 Insurance Authorized Visits - Physician Authorized Visits As needed Insurance Information Recert Due Date 04/18/22 Insurance Name Medicare B,Other; See Comments Insurance Information/Comments [employer] Medical Diagnosis S/P left hip CARMELO Left hip pain Treating Diagnosis Left hip pain, limited hip ROM , impaired gait, impaired balance, gross LE weakness Referring MD Perry Subjective Subjective Pt. returns today S/P right hip CARMELO on 01/25/22. She states that things have been going well at home since the surgery . She is already having a lot less pain than she was prior to surgery. She is ambulating with walker but is anxious to transition to a cane. She has been doing her HEP as instructed and pain has been well controlled. Daughter present today. Lives with daughter in split-level home (basement). PMH: B TKA, hypertension, mild asthma, arthritis, osteopenia , raynauds, obesity Pain Comments mild/mod Precautions Weight Bearing Status Full Weight Bearing Home Exercise Home Exercise Comments CARMELO protocol: Bridges, supported mini squats , supine marching Objective Other/Pertinent Objective Ambulation: Wheeled walker with mild limp and decreased step length ROM: right hip flexion 75 degrees passively/actively 80 degrees Patient Instructed in Risks/Benefits Yes Therapeutic Exercise Therapeutic Exercise Minutes (minutes) 20 Therapeutic Exercise: To Restore Reviewed HEP given pre/post-op Functional Status per protocol. worked on; sit to stand with proper technique with focus on using legs; supine hip flexion marching; supine partial bridges; standing heel raises; standing supported mini squats; and standing hip abductions (some pain so stopped). Pt. instructed in all the above except hip abductions for HEP. Gait & Stair Training Gait Training/Stairs Minutes (minutes) 10 Gait & Stair Training Comments worked on ambulation with walker and SE cane today with cueing to take equal steps. Treatment Minutes Untimed Code Treatment Minutes 20 Timed Code Treatment Minutes 30 Total Treatment Time 50 Billing Units Gait Training/Stairs Units 1 Therapeutic Exercise Units 1 Re-Evaluation Units 1 Assessment/Impression Assessment/Impression Objectively, pt. demonstrates; ambulation with wheeled walker with mild limp, toe out , and shortened stride; 80 degrees of passive right hip flexion; 2plus/5 hip flexion strength on left; gluteal, quad, and hamstring mild weakness; inability to perform indep. SLR on left; and general deconditioning from chronic left hip pain with decreased activity levels. She would benefit from skilled therapy working on progressive mobility, strengthening, and gait training. Plan of Care Physical Therapy Goals 1. Pt. will be indep. with HEP for self maintenance in 8 weeks. 2. Pt. will be able to walk with a SE cane demonstrating safe ambulation in 8 weeks. 3. Pt. will demonstrate good core and LE strength to allow normal transfers with good balance ability in 8 weeks. Daily Plan of Care Continue per POC Daily Plan of Care Comments See weekly for 4-6 weeks. Recertification Information Initial Certification Date 01/24/22 Recertification Start Date 02/01/22 Recertification Due Date 04/26/22 Reasons to Continue Skilled Therapy Pt. had a left CARMELO on 01/25/22 and needs skilled therapy for mobility, strengthening, and gait/balance training to reach her goals. Rehabilitation Potential Good for Goals Continued Plan of Care and Interventions Weekly for 8 weeks. Provider Signature Shows Agreement With POC & Medical Necessity Physician Comment/Change Comment or Changes Physician NPI Number #
== END 2022-03-07 14:06 | disposition home or self-care (01) ==
PROVIDERS: PCP Orthopaedic Surgery; Visit Provider Orthopaedic Surgery
DX: M25.552 Pain in left hip (principal); Z51.89 Encounter for other specified aftercare
CPT/HCPCS: 97110; 97116; 97161; 97164; 97535